=== PATIENT | born 1960 | race Caucasian/White ===

== ENCOUNTER 2025-05-15 15:34 | Outpatient (AMB) | payer MEDICARE, SELFPAY ==
--- NOTE | 2025-05-15 15:10 | MHC.PC.OV ---
Vital Signs 05/15/25 15:14 Height 5 ft 2.2 in Weight 210 lb 4 oz BMI 38.2 BP 138/84 Blood Pressure Location Lt brachial Position Sitting Respiration 12 Pulse 83 Pulse Source Pulse Oximeter Temp 98.1 F Temp Source Oral Pulse Oximetry (%) 98 Oxygen Delivery Method Room Air Intake Visit Reasons: [employer] Intake Note: New patient visit Prepress Specialist Required: No Allergies epinephrine Allergy (Severe, Verified 05/15/25 15:11) heart racing and cold latex Allergy (Intermediate, Verified 05/15/25 15:11) Rash Tobacco use date assessed: 05/15/25 Fall risk assessment: No Falls in past year Last assessed Fall Risk: 05/15/25 Dental Screening Dental Screen Date: 05/15/25 Did you have a dental visit in the last 12 months?: Yes Did you have a dental problem in the last 6 months where you did not have access to dental care?: No Was dental information given to patient?: Patient has dentist HPI HPI Comments History of Present Illness Details The patient is a 64 year old female with a past medical history of p afib, htn, anxiety, obesity, OA, TORI presenting for for annual exam/reestablish care CV: Following with Dr David. Cardiac ablation 2019 [facility]. On metoprolol 25mg daily, eliquis, valsartan. Metoprolol was decreased from 50mg when she expressed that she felt her metabolism was slow. Since then she has been having palpitations, racing heart and intermittent upper chest tightness/discomfort/urge to cough She has been trying to diety and exercise faithfully for more than a year and has been unable to lose any weight. She has a history of untreated TORI Colonoscopy due 12/24/20 Mammo due 02/2025 ROS see HPI PHYSICAL EXAM: GENERAL: Alert and oriented x 3. NAD EYES: EOMI. Anicteric. HENT: Moist mucous membranes. No scleral icterus. No cervical lymphadenopathy. LUNGS: Clear to auscultation bilaterally. CARDIOVASCULAR: Regular rate and rhythm. No murmur. No JVD. ABDOMEN: Soft, non-tender +bs EXTREMITIES: No edema. Non-tender. SKIN: No rashes or lesions. Warm. NEUROLOGIC: No focal neurological deficits. CN II-XII grossly intact PSYCHIATRIC: Cooperative. Appropriate mood and affect [facility] Surgical History H/O colonoscopy Family History Mother Family history of ovarian cancer Father Emphysema lung Brother HTN (hypertension) Paternal Grandfather Bone cancer Social History Housing: House Patient Tobacco Use Status: Former Tobacco user (quit 40 years ago) Cigarettes Per Day: 6 Years Smoked: 10 e-Cigarette/Vaping Use: Never Used Second Hand Smoke Exposure: No service: No Current occupational status: employed and retired Current occupation: self elmployeed, refurbishing couches Current occupational exposures/hazards: No Cognitive needs: No Hearing needs: No Vision needs: No Physical exam (Primary Care) Vital Signs: Last Vital Signs Temp 98.1 F 05/15/25 15:14 Pulse 83 05/15/25 15:14 Resp 12 05/15/25 15:14 BP 138/84 05/15/25 15:14 Pulse Ox 98 05/15/25 15:14 Oxygen Delivery Method Room Air 05/15/25 15:14 BMI result Body Mass Index 38.2 Tobacco/Smoking Status: Tobacco use Status Tobacco use date assessed 05/15/25 05/15/25 15:14 Patient Tobacco Use Status Former Tobacco user (quit 40 05/15/25 15:14 years ago) e-Cigarette/Vaping Use Never Used 05/15/25 15:14 Coding Level of Care Code New Pt Prev Care >65yr (34288) Diagnoses Physical exam Z00.00 Paroxysmal atrial fibrillation I48.0 Atrial fibrillation type: paroxysmal Primary hypertension I10 Hypertension type: primary hypertension Palpitations R00.2 Class 2 severe obesity due to excess calories with serious comorbidity and body mass index (BMI) of 38.0 to 38.9 in adult E66.812; E66.01; Z68.38 Obesity type: due to excess calories Obesity classification: adult class 2 (BMI 35 - 39.9) Serious obesity comorbidity presence: with serious comorbidity Body mass index: BMI 38.0-38.9 TORI (obstructive sleep apnea) G47.33 Assessment & Plan Assessment & Plan (1) Physical exam: Code(s): Z00.00 - Encounter for general adult medical examination without abnormal findings (2) A-fib: Code(s): I48.91 - Unspecified atrial fibrillation Category: Medical Qualifiers: Atrial fibrillation type: paroxysmal Qualified Code(s): I48.0 - Paroxysmal atrial fibrillation (3) Hypertension: Code(s): I10 - Essential (primary) hypertension Category: Medical Qualifiers: Hypertension type: primary hypertension Qualified Code(s): I10 - Essential (primary) hypertension (4) Palpitations: Code(s): R00.2 - Palpitations Category: Medical (5) Obesity: Code(s): E66.9 - Obesity, unspecified Category: Medical Qualifiers: Obesity type: due to excess calories Obesity classification: adult class 2 (BMI 35 - 39.9) Serious obesity comorbidity presence: with serious comorbidity Body mass index: BMI 38.0-38.9 Qualified Code(s): E66.812 - Obesity, class 2; E66.01 - Morbid (severe) obesity due to excess calories; Z68.38 - Body mass index [BMI] 38.0-38.9, adult (6) TORI (obstructive sleep apnea): Code(s): G47.33 - Obstructive sleep apnea (adult) (pediatric) Category: Medical Plan 64 year old for physical exam, reestablish care CV: BP is well controlled on meds. She has been having some breakthrough tachycardia, unclear if atrial fibrillation Labs ordered Mammo ordered. Colonoscopy referral placed. Orders: Orders TSH reflex Free T4 05/15/25 E66.9 - Obesity, unspecified, G47.33 - Obstructive sleep apnea (adult) (pediatric), I10 - Essential (primary) hypertension, I48.91 - Unspecified atrial fibrillation, Z13.0 - Encounter for screening for diseases of the blood and blood-forming organs and certain disorders involving the immune mechanism, Z13.220 - Encounter for screening for lipoid disorders, Z13.228 - Encounter for screening for other metabolic disorders Hemoglobin A1c 05/15/25 E66.9 - Obesity, unspecified, G47.33 - Obstructive sleep apnea (adult) (pediatric), I10 - Essential (primary) hypertension, I48.91 - Unspecified atrial fibrillation, Z13.0 - Encounter for screening for diseases of the blood and blood-forming organs and certain disorders involving the immune mechanism, Z13.220 - Encounter for screening for lipoid disorders, Z13.228 - Encounter for screening for other metabolic disorders Complete Blood Count Auto Diff 05/15/25 E66.9 - Obesity, unspecified, G47.33 - Obstructive sleep apnea (adult) (pediatric), I10 - Essential (primary) hypertension, I48.91 - Unspecified atrial fibrillation, Z13.0 - Encounter for screening for diseases of the blood and blood-forming organs and certain disorders involving the immune mechanism, Z13.220 - Encounter for screening for lipoid disorders, Z13.228 - Encounter for screening for other metabolic disorders Comprehensive Met. Panel 05/15/25 E66.9 - Obesity, unspecified, G47.33 - Obstructive sleep apnea (adult) (pediatric), I10 - Essential (primary) hypertension, I48.91 - Unspecified atrial fibrillation, Z13.0 - Encounter for screening for diseases of the blood and blood-forming organs and certain disorders involving the immune mechanism, Z13.220 - Encounter for screening for lipoid disorders, Z13.228 - Encounter for screening for other metabolic disorders Lipid Panel 05/15/25 E66.9 - Obesity, unspecified, G47.33 - Obstructive sleep apnea (adult) (pediatric), I10 - Essential (primary) hypertension, I48.91 - Unspecified atrial fibrillation, Z13.0 - Encounter for screening for diseases of the blood and blood-forming organs and certain disorders involving the immune mechanism, Z13.220 - Encounter for screening for lipoid disorders, Z13.228 - Encounter for screening for other metabolic disorders MM screening mammo BI 05/15/25 Z12.31 - Encounter for screening mammogram for malignant neoplasm of breast ECG 14 day holter monitor 05/15/25 R00.2 - Palpitations Referrals Gastroenterology Referral Z12.11 - Encounter for screening for malignant neoplasm of colon Medications: New Zepbound (tirzepatide (weight loss)) for 4 weeks 2.5 mg (0.5 mL) subcut QWEEK 2 mL 0RF NS E66.9 - Obesity, unspecified metoprolol succinate ER 50 mg PO DAILY 90 tabs 3RF
[2025-05-15 15:14] VITALS: BP 138/84; PULSE 83; RESP 12; TEMP 36.7; O2SAT 98; BMI 38.2
--- OUTSIDE RECORDS SUMMARY | 2025-05-15 16:24 | XMS_ITS | Clinical Summary ---
Author Organization [facility] Address [address] [place] [address] Phone Care Team Providers Care Insurance Examiner Name Role Phone Hyun Marino MD Primary Care Provider Allergies Active Allergy Reactions Criticality Noted Date Comments Latex, Natural Rubber Rash,Wheezing High 10/28/2018 Medications metoprolol succinate (TOPROL-XL) 100 MG 24 hr tablet Take 100 mg by mouth every evening. Active LORazepam (ATIVAN) 0.5 MG tablet Take 0.5 mg by mouth as needed for anxiety. Active citalopram (CELEXA) 10 MG tablet Take 10 mg by mouth continuous prn. Active ELIQUIS 5 mg tablet TAKE 1 TABLET BY MOUTH TWICE A DAY 180 tablet 3 04/25/20 25 Active ELIQUIS 5 mg tablet TAKE 1 TABLET BY MOUTH TWICE A DAY 180 tablet 3 09/30/20 23 025 Discontinued Active Problems Problem Noted Date Diagnosed Date Persistent atrial fibrillation 12/27/2019 Encounters Date Type Department Care Team Description 04/24/2025 Refill [facility] [address] [place] [id number] Morales Alcantara MD Medication Refill from Last 3 Months Immunizations Immunization Administration Dates Next Due Influenza Quadrivalent Prese rvative Free IM 12/28/2019(Deferred: Patient Refused) Social History Tobacco Use Types Packs/Day Years Used Date Smoking Tobacco: Former Smokeless Tobacco: Never Alcohol Use Standard Drinks/Week Comments Not Currently 0 (1 standard drink = 0.6 oz pur e alcohol) Education Answer Date Recorded Are you interested in more education? Not on mynor e 02/19/2023 Are you concerned about learning? Not on file 02/19/2023 No 02/19/2023 No 02/19/2023 Digital Access Answer Date Recorded No 03/20/2023 No 03/20/2023 No 03/20/2023 Reliable internet access at home? Not on file 03/20/2023 Device with a working camera? Not on file Comments Unknown Sex and Gender Information Value Date Recorded Sex Assigned at Not on file Legal Sex Female 9:30 AM EST Gender Identity Not on file Sexual Orientation Not on file Last Filed Vital Signs Vital Sign Reading Time Taken Comments Blood Pressure 160/91 05/17/2020 2:09 PM EDT Pulse 75 05/17/2020 2:09 PM EDT Temperature 36.6 C (97.9 F) 12/28/2019 8:44 AM EST Respiratory Rate 18 12/28/2019 8:44 AM EST Oxygen Saturation 95% 12/28/2019 8:44 AM EST Inhaled Oxygen Concentration - - Weight 98.4 kg (217 lb) 05/17/2020 2:09 PM EDT w / shoes Height 162.6 cm (5' 4 ) 12/27/2019 8:42 AM EST Body Mass Index 37.25 12/27/2019 8:42 AM EST Plan of Treatment Health Maintenance Due Date Last Done Comments LIPID PANEL 1958 SMOKING Hx and SMOKELESS TOBACCO SCREENING 1971 HEPATITIS C SCREENING 1976 MAMMOGRAM 1998 COLOGUARD 2003 COLONOSCOPY 2003 COLORECTAL CANCER SCREENING 2003 FIT TEST 2003 FOBT 2003 SIGMOIDOSCOPY 2003 VIRTUAL COLONOSCOPY 2003 PNEUMOCOCCAL VACCINES (50+ years) (1 of 1 - PCV) 2008 ZOSTER VACCINES (1 of 2) 2008 Adult Td,Tdap Booster 09/28/2012 09/28/2002 CREATININE LEVEL 12/27/2020 12/28/2019, 12/26/2019 DEPRESSION SCREENING 05/17/2021 05/17/2020 OSTEOPOROSIS SCREENING INITI AL (ONE-TIME) 2023 COVID-19 VACCINE (3 - 2023-2 5 season) 2024 01/18/2021, 12/27/2020 RSV VACCINE (1 - 1-dose 75+ series) 2033 HEPATITIS A VACCINES Aged Out No long er eligible based on patient's age to complete this topic HIB VACCINES Aged Out No longer eligi ble based on patient's age to complete this topic MENINGOCOCCAL VACCINES (ACWY) Aged Out No longer eligible based on patient's age to complete this topic MENINGOCOCCAL VACCINES (B) Aged Out N o longer eligible based on patient's age to complete this topic Medical Devices Not on file Procedures Procedure Name Priority Date/Time Associated Diagnosis Comments BASIC METABOLIC PANEL STAT 12/28/2019 5:56 AM EST from Last 3 Months or Most Recently Relevant to Health Maintenance Results * (ABNORMAL) Basic metabolic panel (12/28/2019 5:56 AM EST) SODIUM 139 136 - 145 mmol/L [facility] POTASSIUM 3.8 3.4 - 5.1 mmol/L [facility] CHLORIDE 103 98 - 107 mmol/L [facility] CO2 23 22 - 31 mmol/L [facility] BUN 15 6 - 23 mg/dL [facility] CREATININE 0.72 0.50 - 1.20 mg/dL [facility] GLUCOSE 108(H) 70 - 100 mg/dL [facility] CALCIUM 8.9 8.8 - 10.7 mg/dL [facility] EGFR 90 >59 mL/min/1.7 3m2 [facility] Comment:If patient is black, multiply result by 1.159. Estimated glomerular filtration rate calculated using the CKD-EPI equation. ANION GAP 13 7 - 17 mmol/L [facility] Blood 12/28/2019 5:56 AM EST 12/28/2019 6:40 AM EST Lottie Maguire PA-C LAB BLOOD ORDERABLES Final R esult [facility] [address] [place] [id number] from Last 3 Months or Most Recently Relevant to Health Maintenance Advance Directives For more information, please contact: [phone] (9AM - 5PM [place], Wednesday-Wednesday) * Full Code (Presumed) (Latest Code Status on File) Date Activated Date Inactivated Comments 12/27/2019 5:32 PM 12/28/2019 1:05 PM * Full Code (Presumed) Date Activated Date Inactivated Comments 12/27/2019 8:07 AM 12/27/2019 5:32 PM Healthcare Agents on File Name Relationship Healthcare Agent Lesleync sandra Vadim Hand Spouse .Primary Health Care Agent (Proxy form on file) Care Teams Insurance Examiner Relationship Specialty Start Date End Date Hyun Marino MD PCP - General Internal Medicine 10/24/18 Additional Source Comments The information contained in this document represents components of the legal health record. It is not the complete legal health record.[facility]
== END 2025-05-15 15:35 | disposition home or self-care (01) ==
LOC: HO.HMCFM 15:34
PROVIDERS: PCP Internal Medicine; Visit Provider Internal Medicine
DX: Z00.00 Encounter for general adult medical examination without abnormal findings (principal); I48.0 Paroxysmal atrial fibrillation; E66.01 Morbid (severe) obesity due to excess calories; Z68.38 Body mass index [BMI] 38.0-38.9, adult; I10 Essential (primary) hypertension; R00.2 Palpitations; G47.33 Obstructive sleep apnea (adult) (pediatric)

== ENCOUNTER → 2025-05-15 15:34 | Outpatient (BNVA) | payer MEDICARE, OTHER, SELFPAY | PROVIDERS: PCP Internal Medicine; Visit Provider Internal Medicine | DX: Z00.00 Encounter for general adult medical examination without abnormal findings (principal); I48.0 Paroxysmal atrial fibrillation; I10 Essential (primary) hypertension; R00.2 Palpitations; E66.812 Obesity, class 2; E66.01 Morbid (severe) obesity due to excess calories; Z68.38 Body mass index [BMI] 38.0-38.9, adult; G47.33 Obstructive sleep apnea (adult) (pediatric); Z79.01 Long term (current) use of anticoagulants; Z79.899 Other long term (current) drug therapy | CPT/HCPCS: 36415; 80053; 80061; 83036; 84443; 85025; 99387 ==

== ENCOUNTER 2025-05-15 15:38 | Outpatient (REF) | payer MEDICARE, OTHER, SELFPAY ==
[2025-05-15 18:07] LABS: MANUAL DIFF FLAG NO
[2025-05-15 18:16] LABS: Hematocrit 42.2 %; Hemoglobin 14.0 g/dl; Imm Gran Abs Auto 0.02 X10*3/uL (0.00-0.03); Imm Gran Pct Auto 0.3 % (0.0-0.4); Lymphocytes Absolute Auto 2.0 X10*3/uL; Mean Corpuscular HGB Conc 33.2 g/dl; Mean Corpuscular Hemoglobin 32.0 pg; Mean Corpuscular Volume 96.3 fL; NRBC Abs Auto 0.000 X10*3/uL (0.0-0.012); NRBC Pct Auto 0.0 /100WBC (0.0-0.2); Platelet Count 172 X10*3/uL; Red Blood Count 4.38 X10*6/uL; White Blood Count 5.9 X10*3/uL
[2025-05-15 18:20] LABS: Hemoglobin A1C 126.7457 umol/L; Total Hemoglobin (HGBA1C) 3605.6312 umol/L
[2025-05-15 18:31] LABS: Alanine Aminotransferase 37 U/L; Albumin Level 4.3 g/dL; Alkaline Phosphatase 119 U/L; Anion Gap 12; Aspartate Amino Transferase 35 U/L; Blood Urea Nitrogen 10 mg/dL; Calcium 9.0 mg/dL; Carbon Dioxide 26 mmol/L; Chloride 109 mmol/L; Cholesterol 218 mg/dL; Estimated Glomerular Filt Rate > 60; HDL Cholesterol 46 mg/dL; Potassium 3.6 mmol/L; Sodium 143 mmol/L; Total Protein 6.8 g/dL; Triglycerides 222 mg/dL
== END 2025-05-15 15:39 | disposition home or self-care (01) ==
LOC: HO.WFDLDS 15:38
PROVIDERS: Visit Provider Internal Medicine
DX: Z13.0 Encounter for screening for diseases of the blood and blood-forming organs and certain disorders involving the immune mechanism (principal); I48.91 Unspecified atrial fibrillation; I10 Essential (primary) hypertension; G47.33 Obstructive sleep apnea (adult) (pediatric); E66.9 Obesity, unspecified; Z13.220 Encounter for screening for lipoid disorders
CPT/HCPCS: 36415; 80053; 80061; 83036; 84443; 85025

== ENCOUNTER → 2025-06-04 13:24 | Outpatient (REF) | payer MEDICARE, OTHER, SELFPAY ==
--- NOTE | 2025-06-04 13:26 | HM_ITS ---
Conclusion: 1. Patient was monitored for total period of 11 days and 19 hours 2. Baseline was normal sinus rhythm with average heart rate of 70 beats per minute 3. No significant pauses noted 4. Frequent isolated PVCs noted with total burden of 1.86% 5. Rare PACs noted with multiple short runs of SVT, longest lasting 23 beats and the fastest at 178 beats per minute 6. Patient marked the counter 31 times with most of the symptoms reported of palpitation skipped heartbeats correlating with isolated PVCs MTDD
--- OUTSIDE RECORDS SUMMARY | 2025-06-04 13:33 | XMS_ITS | Clinical Summary ---
Author Organization [facility] [address] [facility] Address [address] [place] [address] Phone Care Team Providers Care Foundation Director Name Role Phone Hyun Bergman MD Primary Care Provider [phone] Allergies Active Allergy Reactions Criticality Noted Date Comments Epinephrine 05/22/2025 Latex Itching 01/06/2016 Procaine Hcl 02/14/2009 Cold and shaking Medications MAGNESIUM ORAL Take 144 mg by mouth 1 (one) time each day. Active Lactobacillus acidophilus (PROBIOTIC ACIDOPHILUS ORAL) Take 1 capsule by mouth 1 (one) time each day. Active LORazepam (ATIVAN) 0.5 mg tablet 1 po qd prn anxiety or insomnia 09/23/20 21 Active apixaban (Eliquis) 5 mg tablet Take 1 tablet (5 mg total) by mouth 2 (two) times a day. 06/01/20 19 Active CYANOCOBALAMIN, VITAMIN B-12, SL Place under the tongue. Active calcium carbonate/vitami n D3 (CALCIUM 600 + D,3, ORAL) QD 11/16/19 08 Active metoprolol succinate (TOPROL-XL) 25 mg 24 hr tabletIndication s:Paroxysmal atrial fibrillation (CMS/HCC V24, CMS/HCC V28) TAKE 1 TABLET BY MOUTH EVERY DAY 90 tablet 3 03/29/20 25 Active tirzepatide, weight loss, (Zepbound) 2.5 mg/0.5 mL injection Inject 0.5 mL (2.5 mg total) under the skin. Active valsartan (DIOVAN) 40 mg tabletIndication s:Essential (primary) hypertension TAKE 1 TABLET BY MOUTH EVERY DAY 90 tablet 1 05/25/20 25 Active valsartan (DIOVAN) 40 mg tablet Take 1 tablet (40 mg total) by mouth 1 (one) time each day. 05/25/20 24 025 Discontinued Active Problems Problem Noted Date Diagnosed Date Paroxysmal A-fib (CMS/HCC V24, CMS/HCC V28) 07/26 PVC's (premature ventricular contractions) 09/24 Rapid heart rate 01/27/2021 Hypertension 09/03/2018 [facility] arthritis 01/06/2016 Positive ANNETTE (antinuclear antibody) 11/27/2015 Flushing 11/25/2015 Right shoulder pain 11/25/2015 Panic disorder 05/16/2015 Foot pain 10/04/2007 Overweight 10/04/2007 Encounters Date Type Department Care Team Description 05/22/2025 Telephone Gastroenterology - [address] [facility] [address] [place] [address] Mercy Castillo MD from Last 3 Months Immunizations Name Administration Dates Next Due Influenza trivalent, 0.5mL, preservative free (Fluarix; FluLaval; Fluzone) ages 6mo and older (Afluria) 3 years and older 11/16/2007 Td, Unspecified 09/28/2002 Surgical History Surgery Date Site/Laterality Comments SECTION X 2 PROCEDURE: [place] COLONOSCOPY PROCEDURE: [place] COLONOSCOPY FLX DX W/COLLJ SPEC WHEN PFRMD Medical History Medical History Date Comments Overweight(278.02) 10/04/2007 DX:Overweight (278.02) Flushing 11/25/2015 DX:Flushing Right shoulder pain 11/25/2015 DX:Right bridgett ulder pain Positive ANNETTE (antinuclear antibody) 11/27/2015 DX:Positive ANNETTE (antinuclear antibody) [facility] arthritis 01/06/2016 DX:[facility] arthritis Paroxysmal A-fib (CMS/HCC V2 4, CMS/HCC V28) DX:Paroxysmal A-fib (HCC) Anxiety disorder DX:Anxiety diso rder Family History Relation Name Status Comments Brother Alive Healthy - HTN Daughter Alive Healthy Father Emphysema Maternal Grandfather [place] Maternal Grandmother (Age 85) [place] Mother Ovaricran cnace r Paternal Grandfather [place] - SADIQ [place] Paternal Grandmother (Age 85) [place] x heart Son Alive Helathy Social History Tobacco Use Types Packs/Day Years Used Date Smoking Tobacco: Former Cigarettes Smokeless Tobacco: Never Alcohol Use Standard Drinks/Week Comments Yes 0 (1 standard drink = 0.6 oz pur e alcohol) Comments Unknown Sex and Gender Information Value Date Recorded Sex Assigned at Not on file Legal Sex Female 9:08 PM EST Gender Identity Not on file Sexual Orientation Not on file Obstetrics History Last Filed Vital Signs Vital Sign Reading Time Taken Comments Blood Pressure 140/80 03/13/2024 3:32 PM EDT Sitting L Arm Pulse 71 09/24/2022 8:26 AM EST Temperature - - Respiratory Rate - - Oxygen Saturation - - Inhaled Oxygen Concentration - - Weight 96.1 kg (211 lb 12.8 oz) 03/13/2024 3:32 PM EDT Height 162.6 cm (5' 4 ) 03/13/2024 3:32 PM EDT Body Mass Index 36.36 03/13/2024 3:32 PM EDT Plan of Treatment Upcoming Encounters Date Type Department Care Team (Late st Contact Info) Description 06/07/2025 10:20 AM EDT Office Visit [facility] [address] [facility] [address] [place] [address] Estee David MD [address] [place] [address] Health Maintenance Due Date Last Done Comments Pneumococcal Vaccine: 50+ Years (1 of 1 - PCV) 2008 Zoster Vaccines (1 of 2) 2008 DTaP,Tdap,and Td Vaccines (2 - Td or Tdap) 09/28/2012 09/28/2002 Cholesterol Screening (Lipid Panel) 09/26/2022 11/25/2015 Colorectal Cancer Screening: Colonoscopy 09/26/2022 Medicare Annual Wellness Visit 09/26/2022 Osteoporosis Screening (Bone Density Screening) 09/26/2022 Social Influencers of Health Screening 09/26/2022 Hypertension/CHF/CAD Annual BMP Blood Test 10/04/2022 11/09/2008 Falls Risk Assessment 2023 COVID-19 Vaccine (1 - 2023-2 5 season) 2024 Depression Screening 10/25/2024 Influenza Vaccine (#1) 2025 11/16/2007 Breast Cancer Screening 03/02/2026 03/02/20 24, 02/11/2023, 01/21/2022 RSV Immunization Adult Patients (1 - 1-dose 75+ series) 2033 Hepatitis C Screening Completed 11/25/2015 HIB Vaccines Aged Out No longer eligi ble based on patient's age to complete this topic HPV Vaccines Aged Out No longer eligi ble based on patient's age to complete this topic Hepatitis A Vaccines Aged Out No long er eligible based on patient's age to complete this topic Hepatitis B Vaccines Aged Out No long er eligible based on patient's age to complete this topic IPV Vaccines Aged Out No longer eligi ble based on patient's age to complete this topic MMR Vaccines Aged Out No longer eligi ble based on patient's age to complete this topic Meningococcal ACWY Vaccine Aged Out N o longer eligible based on patient's age to complete this topic Meningococcal B Vaccine Aged Out No l onger eligible based on patient's age to complete this topic RSV Immunization Patients Under 20 months Aged Out No longer eligible b ased on patient's age to complete this topic Varicella Vaccines Aged Out No longer eligible based on patient's age to complete this topic Procedures Procedure Name Priority Date/Time Associated Diagnosis Comments [facility] SCREENING DIGITAL Routine 03/02/2024 11:20 AM EDT Encounter for screening mammogram for malignant neoplasm of breast HEPATITIS C SCREENING Routine 11/25/2015 LIPID PANEL Routine 11/25/2015 ANNUAL BMP BLOOD TEST Routine 11/09/2008 from Last 3 Months or Most Recently Relevant to Health Maintenance Results * [facility] SCREENING DIGITAL (03/02/2024 11:20 AM EDT) Anatomical Region Laterality Modality Mammography 03/02/2024 9:50 AM EDT Narrative 03/02/2024 11:20 AM EDT [facility] Diagnostic Imaging Department [address] [place] [id number] Patient: NURA RAYMOND Drea AmezcuaB./Age/Sex: 1960 - 63 - F Unit#: [id number] Location/Status: SPDIMAM/REG CLI Mnemonic/Ordering Site: [facility] Ordering Physician: GEOVANNA WATTERS MD [facility] Screening Digital - 03/02/24 - 1006 Report Status:Signed EXAM: [facility] Screening Digital EXAM DATE AND TIME: 03/02/2024 10:07 AM HISTORY: Annual screening COMPARISON: Multiple exams dating back to 2014 TECHNIQUE: Bilateral digital breast tomosynthesis was performed in the CC and MLO projections. Computer aided detection with [employer] 3D 3.1 was employed. TISSUE DENSITY: b. There are scattered areas of fibroglandular density. FINDINGS: No suspicious masses, grouped microcalcifications, or areas of architectural distortion are seen. The skin and vascularity are unremarkable. IMPRESSION: Stable mammographic appearance of the breasts. No evidence of malignancy is seen. A negative mammogram in the presence of a clinically suspicious palpable abnormality does not preclude the possibility of malignancy or alter the indications for biopsy. BI-RADS: Category 1: Negative RECOMMENDATION(S): 1: Routine screening mammogram BILATERAL in 1 year. 3341F, 7025F Dictating Physician: LOPEZ KOROMA MD Electronically Signed by: LOPEZ KOROMA MD Dic Date/Time: 03/02/24 1120 Sign date/Time: 03/02/24 1120 Procedure Note Lopez Koroma MD - 06/12/2024 [facility] Diagnostic Imaging Department [address] [place] [address] Patient: NURA RAYMOND /Age/Sex: 1960 - 63 - F Unit#: [id number] Location/Status: SPDIMAM/REG CLI Mnemonic/Ordering Site: [facility] Ordering Physician: GEOVANNA WATTERS MD [facility] Screening Digital - 03/02/24 - 1006 Report Status:Signed EXAM: [facility] Screening Digital EXAM DATE AND TIME: 03/02/2024 10:07 AM HISTORY: Annual screening COMPARISON: Multiple exams dating back to 2014 TECHNIQUE: Bilateral digital breast tomosynthesis was performed in the CCand MLO projections. Computer aided detection with [employer] 3D 3.1was employed. TISSUE DENSITY: b. There are scattered areas of fibroglandular density. FINDINGS: No suspicious masses, grouped microcalcifications, or areas ofarchitectural distortion are seen. The skin and vascularity are unremarkable. IMPRESSION: Stable mammographic appearance of the breasts. No evidence of malignancyis seen. A negative mammogram in the presence of a clinically suspicious palpable abnormality does not preclude the possibility of malignancy or alter the indications for biopsy. BI-RADS: Category 1: Negative RECOMMENDATION(S): 1: Routine screening mammogram BILATERAL in 1 year. 3341F, 7025F Dictating Physician: LOPEZ KOROMA MD Electronically Signed by: LOPEZ KOROMA MD Dic Date/Time: 03/02/24 1120 Sign date/Time: 03/02/24 1120 us Geovanna Watters MD IM BI PROCEDURES Final Result * Hepatitis C Screening (11/25/2015) Pathologist [facility] Hepatitis C Screening abstracted Historical Provider HEALTH MAINTENANCE Final Result * (ABNORMAL) Lipid panel (11/25/2015) [facility] LDL/HDL Ratio 3 0 - 4 Triglycerides 79 0 - 150 mg/dL Cholesterol 194 0 - 200 mg/dL HDL 61 >=40 mg/dL LDL Cholesterol 117(A) 0 - 100 mg/dL Blood Venous blood specimen / Unknown Historical Provider LAB BLOOD ORDERABLES Norma l Result * Annual BMP Blood Test (11/09/2008) [facility] Annual BMP Blood Test abstracted Historical Provider HEALTH MAINTENANCE Final Result from Last 3 Months or Most Recently Relevant to Health Maintenance Insurance [facility] MEDICARE Care Teams Foundation Director Relationship Specialty Start Date End Date Hyun Bergman MD [address] [place] [id number] PCP - General Internal Medicine 05/22/25
== END ==
LOC: HO.CARD 13:24
PROVIDERS: PCP Internal Medicine; Visit Provider Internal Medicine
DX: R00.2 Palpitations (principal)
CPT/HCPCS: 93246

== ENCOUNTER → 2025-06-04 13:26 | Outpatient (BNV) | payer MEDICARE, OTHER, SELFPAY | PROVIDERS: PCP Internal Medicine; Visit Provider Internal Medicine Cardiovascular Disease | DX: I49.1 Atrial premature depolarization (principal); I49.3 Ventricular premature depolarization; I47.10 Supraventricular tachycardia, unspecified | CPT/HCPCS: 93248 ==